=== PATIENT | female | born 1980 | race Caucasian/White ===

== ENCOUNTER 2018-01-06 10:30 | Emergency (ER) | payer BC ==
[~2018-01-06 10:30] MED LIST: LORTA5 PO; PREN0.01 PO
[2018-01-06] MEDS ORDERED: KETOROLAC TROMETHAMINE 60 MG/2 ML (IM) VIAL IM ONE (10:45)
[2018-01-06] MEDS ORDERED: ORPHENADRINE INJ 60 MG/2 ML AMP IM ONE (10:45)
[2018-01-06] MEDS ORDERED: DEXAMETHASONE SOD PHOS 4 MG/ML VIAL IM ONE (10:45)
[2018-01-06] MEDS ORDERED: FAMOTIDINE 20 MG TAB PO ONE (10:45)
--- NOTE | 2018-01-06 10:49 | PD ---
HPI Chief Complaint: Pain: Acute or Chronic Time Seen by Provider: 10:34 Travel History International Travel<30 days: No Contact w/Intl Traveler<30days: No Traveled to known affect area: No History of Present Illness HPI 37 year-old otherwise healthy female presents to the emergency room for evaluation of acute low back pain. Patient states symptoms started 3 days ago. She was doing lifts at the gym when the pain started. Localized to the upper low back on both sides of the spine. It is sharp in nature and occasionally feels like it spasms. No radiation. Worse with any range of motion, coughing, standing, or walking. She took 600 mg ibuprofen this morning without relief in symptoms. No chronic medical conditions or daily medications. She denies saddle anesthesia, loss of bowel or bladder control, lower extremity paresthesias, IV drug use, fever, night sweats. No history of back pain. No possibility of . PFSH Past Medical History : 1 Social History Alcohol Use: No Tobacco Use: No Allergies-Medications (Allergen,Severity, Reaction): Coded Allergies: No Known Allergies (Verified Adverse Reaction, Unknown, 01/06/18) Reported Meds & Prescriptions Reported Meds & Active Scripts Active Robaxin (Methocarbamol) 750 Mg Tab 750 Mg PO Q8HR Zantac (Ranitidine HCl) 150 Mg Tab 150 Mg PO DAILY Ibuprofen 600 Mg Tab 600 Mg PO Q8HR PRN Prednisone 20 Mg Tab 40 Mg PO DAILY Take 40 mg (2 tablets) daily for 4 days Reported Aleve (Naproxen Sodium) 220 Mg Capsule 600 Review of Systems Except as stated in HPI: all other systems reviewed are Neg Physical Exam Narrative GENERAL: Well-nourished, well-developed female no acute distress. Afebrile. Ambulatory. SKIN: Focused skin assessment warm/dry. No erythema or ecchymosis. HEAD: Normocephalic. EYES: No scleral icterus. No injection or drainage. NECK: Supple, trachea midline. No JVD or lymphadenopathy. CARDIOVASCULAR: Regular rate and rhythm without murmurs, gallops, or rubs. RESPIRATORY: Breath sounds equal bilaterally. No accessory muscle use. BACK: No midline tenderness. No obvious deformity. No CVA tenderness. 2+ patellar and Achilles reflexes are equal bilaterally. Positive straight leg raise. Mild tenderness to palpation of the bilateral paraspinous musculature of the lumbar spine. Data Data Last Documented VS Vital Signs Date Time Temp Pulse Resp B/P (MAP) Pulse Ox O2 Delivery O2 Flow Rate FiO2 01/06/18 11:23 98.0 78 20 127/77 (94) 99 Orders Orders Ketorolac Inj (Toradol Inj) (01/06/18 10:45) Dexamethasone Inj (Decadron Inj) (01/06/18 10:45) Orphenadrine Inj (Norflex Inj) (01/06/18 10:45) Famotidine (Pepcid) (01/06/18 10:45) Spine, Lumbar - Ltd (Ap & Lat) (01/06/18 ) Ed Discharge Order (01/06/18 11:50) [facility] Medical Decision Making Medical Screen Exam Complete: Yes Emergency Medical Condition: Yes Medical Record Reviewed: Yes Differential Diagnosis Muscle spasm, strain, contusion, fracture, slipped disc Narrative Course 37 year old female presents to the emergency room for evaluation of acute low back pain. Symptoms started about 3 days ago while lifting weights. Since then she has had severe, sharp pain into the mid, lumbar paraspinous musculature bilaterally. No red flag symptoms. No midline tenderness. No obvious deformity. No focal neurological deficits. X-ray shows no acute abnormality. I suspect soft tissue injury. Patient given Toradol, Pepcid, Norflex, Decadron in the emergency room. She will be discharged with prescriptions for ibuprofen, Robaxin, prednisone, and Zantac. Told to follow- up with a primary care physician for outpatient MRI if symptoms persist or return for worsening symptoms. She understands and agrees to plan. Diagnosis Primary Impression: Low back pain Qualified Codes: M54.5 - Low back pain Referrals: Primary Care Physician Additional Instructions: Rest and drink plenty of fluids. Take Robaxin as directed, as needed for pain. Prednisone as directed, until gone. Take ibuprofen with food as directed, as needed for pain. Apply ice to the affected area for 20 minutes at a time, as needed for pain and swelling. Follow-up with a primary care physician. Return to the emergency room for worsening symptoms. Scripts Methocarbamol (Robaxin) 750 Mg Tab 750 MG PO Q8HR for Muscle Spasm, #21 TAB 0 Refills Prov: Don Finley MD 01/06/18 Ranitidine (Zantac) 150 Mg Tab 150 MG PO DAILY for Reduce Stomach Acid, #14 TAB 0 Refills Prov: Don Finley MD 01/06/18 Ibuprofen (Ibuprofen) 600 Mg Tab 600 MG PO Q8HR Y for PAIN, #21 TAB 0 Refills Prov: Don Finley MD 01/06/18 Prednisone (Prednisone) 20 Mg Tab 40 MG PO DAILY, #8 TAB 0 Refills Take 40 mg (2 tablets) daily for 4 days Prov: Don Finley MD 01/06/18 Disposition: 01 DISCHARGE HOME Condition: Tahira Levine January 06, 2018 10:49
[2018-01-06] MEDS ORDERED: NAPR220C22 (10:53)
--- NOTE | 2018-01-06 11:10 | RADRPT ---
EXAM DATE/TIME: 01/06/2018 10:53 [place] COMPARISON: No previous studies available for comparison. INDICATIONS : Pain in lower back and both groins since weight lifting session 3 days ago MEDICAL HISTORY : None. SURGICAL HISTORY : None. ENCOUNTER: Initial ACUITY: 4 - 6 days PAIN SCORE: 10/10 LOCATION: Bilateral lumbar FINDINGS: Two view examination was performed. There are five non-rib bearing vertebral bodies. The vertebral bodies are in normal alignment without evidence of subluxation or scoliosis. The disc spaces are westley ntained. The pedicles are intact. Bony mineralization is normal. No fracture is identified. CONCLUSION: No acute disease. Bc Kay MD on January 06, 2018 at 11:07 Board Certified Radiologist. This report was verified electronically.
[2018-01-06 11:23] VITALS: BP 127/77; PULSE 78; RESP 20; TEMP 98; O2SAT 99
[2018-01-06] MEDS ORDERED: IBUP-232 PO (11:49)
[2018-01-06] MEDS ORDERED: PRED20 PO (11:49)
[2018-01-06] MEDS ORDERED: ZANT150T2 PO (11:49)
[2018-01-06] MEDS ORDERED: ROBA750T PO (11:49)
== END 2018-01-06 11:58 | disposition home or self-care (01) ==
LOC: NEPK 10:30
DX: M54.5 Low back pain (principal); X50.0XXA Overexertion from strenuous movement or load, initial encounter; Y93.B9 Activity, other involving muscle strengthening exercises
CPT/HCPCS: 72100; 96372; 99283; J1100; J1885; J2360